=== PATIENT | female | born 1960 | race Caucasian/White ===

== ENCOUNTER 2016-10-25 17:12 | Emergency (ER) | payer OTHER ==
[2016-10-25] MEDS ORDERED: Aspirin 81 MG Tab.Chew PO ONE (17:27)
[2016-10-25] MEDS ORDERED: Ondansetron 4 MG/2 ML SDV IV ONE (17:28)
[2016-10-25] MEDS ORDERED: Morphine 2 MG/ML Syringe IVPUSH ONE ×3 (17:42→19:45)
--- NOTE | 2016-10-25 17:43 | EDM.PDOC ---
<Henry Cisneros - Last Filed: 10/25/16 18:45> ED HPI GENERAL MEDICAL PROBLEM - General Stated Complaint: BACK PAIN,CHEST PAIN,THROWING UP Time Seen by Provider: 10/25/16 17:34 Source of Information: Reports: Patient History Limitations: Reports: No Limitations - History of Present Illness INITIAL COMMENTS - FREE TEXT/NARRATIVE: This 56 yo female patient reports to the ED with abdominal pain, chest pain and back pain. The patient reports her pain started at about 1500 today and rates her pain at a 10/10. The patient reports she has a history of a gastric bypass and has a pacemaker. The patient has been nauseated since the onset of her symptoms with some bile vomitus. The patient reports she has had intermittent similar symptoms in the past, but they usually do not last this long. Onset: Today Onset Date: 10/25/16 Onset Time: 15:00 Duration: Constant, Getting Worse Location: Reports: Chest, Abdomen, Back Quality: Reports: Ache, Sharp Severity: Severe Improves with: Reports: None Worsens with: Reports: None Associated Symptoms: Reports: Nausea/Vomiting Treatments [employer]ESSION[employer]: Reports: NSAIDS Epigastric Pain Score (Numeric/FACES): 10 - Related Data Allergies Allergy/AdvReac Type Severity Reaction Status Date / Time No Known Allergies Allergy Verified 10/25/16 17:39 Home Meds: Home Meds FLUoxetine HCl [Fluoxetine] 20 mg PO DAILY 10/25/16 [History] Ibuprofen 10/25/16 [History] Lisinopril [Prinivil] 10 mg PO DAILY 10/25/16 [History] Meclizine [Antivert] 25 mg PO DAILY 10/25/16 [History] Multivitamin [Daily Florin] 1 each PO DAILY 10/25/16 [History] Omeprazole Magnesium [Prilosec Otc] 20 mg PO DAILY 10/25/16 [History] ED ROS GENERAL - Review of Systems Review Of Systems: ROS reveals no pertinent complaints other than HPI. ED EXAM, GENERAL - Physical Exam Exam: See Below Exam Limited By: No Limitations General Appearance: Alert, WD/WN, Severe Distress Eye Exam: Bilateral Eye: EOMI, Normal Inspection, PERRL Ears: Normal External Exam, Normal Canal, Hearing Grossly Normal, Normal TMs Nose: Normal Inspection, Normal Mucosa, No Blood Throat/Mouth: Normal Inspection, Normal Lips, Normal Teeth, Normal Gums, Normal Oropharynx, Normal Voice, No Airway Compromise Head: Atraumatic, Normocephalic Neck: Normal Inspection, Supple, Non-Tender, Full Range of Motion Respiratory/Chest: No Respiratory Distress, Lungs Clear, Normal Breath Sounds, No Accessory Muscle Use, Chest Non-Tender Cardiovascular: Normal Peripheral Pulses, Regular Rate, Rhythm, No Edema, No Gallop, No JVD, No Murmur, No Rub GI/Abdominal: Normal Bowel Sounds, Guarding, Tender (diffuse) (Female) Exam: Deferred Rectal (Female) Exam: Deferred Extremities: Normal Inspection, Normal Range of Motion, Non-Tender, Normal Capillary Refill, No Pedal Edema Neurological: Alert, Oriented, CN II-XII Intact, Normal Cognition Psychiatric: Anxious, Tearful Skin Exam: Warm, Intact, Normal Color, No Rash, Diaphoretic Lymphatic: No Adenopathy Course - Vital Signs Last Recorded V/S: Last Vital Signs Temp 95.4 F 10/25/16 17:39 Pulse 77 10/25/16 18:30 Resp 18 10/25/16 18:30 BP 153/75 H 10/25/16 18:30 Pulse Ox 100 10/25/16 17:39 - Orders/Labs/Meds Orders: Active Orders 24 hr Category Date Time Status EKG Documentation Completion [RC] URGENT Care 10/25/16 17:27 Active Glucose [Blood Glucose Check, Bedside] [RC] ONETIME Care 10/25/16 17:35 Active Labs: Laboratory Tests 10/25/16 10/25/16 10/25/16 Range/Units 17:37 17:50 17:50 WBC 8.5 (5.0-10.0) 10^3/uL RBC 4.50 (4.2-5.4) 10^6/uL Hgb 14.1 (12.0-16.0) g/dL Hct 40.9 (37.0-47.0) % MCV 90.9 (80-100) fL MCH 31.3 (27.0-34.0) pg MCHC 34.5 (33.0-35.0) g/dL Plt Count 172 (150-450) 10^3/uL Neut % (Auto) 70.8 (42.2-75.2) % Lymph % (Auto) 20.2 L (20.5-50.1) % Mchenry % (Auto) 7.2 (2-8) % Eos % (Auto) 1.2 (1.0-3.0) % Baso % (Auto) 0.6 (0.0-1.0) % Sodium 139 (135-145) mmol/L Potassium 3.2 L (3.6-5.0) mmol/L Chloride 111 (101-111) mmol/L Carbon Dioxide 15.0 L (21.0-31.0) mmol/L Anion Gap 16.2 BUN 26 H (7-18) mg/dL Creatinine 0.9 (0.6-1.3) mg/dL Est Cr Clr Drug Dosing 66.90 mL/min Estimated GFR (MDRD) > 60 BUN/Creatinine Ratio 28.88 Glucose 160 H (74-105) mg/dL POC Glucose 152 H (70-105) mg/dl Calcium 9.1 (8.4-10.2) mg/dl Total Bilirubin 0.4 (0.2-1.0) mg/dL AST 26 (10-42) IU/L ALT 19 (10-60) IU/L Alkaline Phosphatase 62 (42-121) IU/L Troponin I < 0.02 (0.00-0.02) ng/ml Total Protein 6.9 (6.7-8.2) g/dl Albumin 4.1 (3.2-5.5) g/dl Globulin 2.8 Albumin/Globulin Ratio 1.46 Amylase (28-100) U/L Lipase (22-51) U/L Ethyl Alcohol mg/dL 05/16/17 Range/Units 17:50 WBC (5.0-10.0) 10^3/uL RBC (4.2-5.4) 10^6/uL Hgb (12.0-16.0) g/dL Hct (37.0-47.0) % MCV (80-100) fL MCH (27.0-34.0) pg MCHC (33.0-35.0) g/dL Plt Count (150-450) 10^3/uL Neut % (Auto) (42.2-75.2) % Lymph % (Auto) (20.5-50.1) % Mchenry % (Auto) (2-8) % Eos % (Auto) (1.0-3.0) % Baso % (Auto) (0.0-1.0) % Sodium (135-145) mmol/L Potassium (3.6-5.0) mmol/L Chloride (101-111) mmol/L Carbon Dioxide (21.0-31.0) mmol/L Anion Gap BUN (7-18) mg/dL Creatinine (0.6-1.3) mg/dL Est Cr Clr Drug Dosing mL/min Estimated GFR (MDRD) BUN/Creatinine Ratio Glucose (74-105) mg/dL POC Glucose (70-105) mg/dl Calcium (8.4-10.2) mg/dl Total Bilirubin (0.2-1.0) mg/dL AST (10-42) IU/L ALT (10-60) IU/L Alkaline Phosphatase (42-121) IU/L Troponin I (0.00-0.02) ng/ml Total Protein (6.7-8.2) g/dl Albumin (3.2-5.5) g/dl Globulin Albumin/Globulin Ratio Amylase 31 (28-100) U/L Lipase 25 (22-51) U/L Ethyl Alcohol < 5 mg/dL Meds: Medications Discontinued Medications Generic Name Dose Route Start Last Admin Trade Name Freq PRN Reason Stop Dose Admin Aspirin 324 mg 10/25/16 17:27 10/25/16 17:42 Aspirin PO 10/25/16 17:28 324 mg ONETIME ONE Administration Fentanyl 25 mcg 10/25/16 21:26 10/25/16 21:31 Sublimaze IVPUSH 10/25/16 21:27 25 mcg ONETIME ONE Administration Iopamidol 75 ml 10/25/16 18:35 10/25/16 18:41 Isovue-300 (61%) IVPUSH 10/25/16 18:36 75 ml ONETIME ONE Administration Metoclopramide HCl 10 mg 10/25/16 18:15 10/25/16 18:17 Reglan IVPUSH 10/25/16 18:16 10 mg ONETIME ONE Administration Morphine Sulfate 2 mg 10/25/16 17:42 10/25/16 17:46 Morphine IVPUSH 10/25/16 17:43 2 mg ONETIME ONE Administration Morphine Sulfate 2 mg 10/25/16 18:21 10/25/16 18:23 Morphine IVPUSH 10/25/16 18:22 2 mg ONETIME ONE Administration Morphine Sulfate 2 mg 10/25/16 19:45 10/25/16 20:36 Morphine IVPUSH 10/25/16 19:46 2 mg ONETIME ONE Administration Ondansetron HCl 4 mg 10/25/16 17:28 10/25/16 17:31 Zofran IV 10/25/16 17:29 4 mg ONETIME ONE Administration Promethazine HCl 25 mg 10/25/16 21:26 10/25/16 21:32 Phenergan IM 10/25/16 21:27 25 mg ONETIME ONE Administration Departure - Departure Disposition: DC/Tfer to Acute Hospital 02 Clinical Impression: Intussusception of intestine, Small bowel obstruction, H/O gastric bypass, H/O : CVA (cerebrovascular accident) Atrial fibrillation Qualifiers: Atrial fibrillation type: chronic Qualified Code(s): I48.2 - Chronic atrial fibrillation Referrals: PCP,Unobtain [Primary Care Provider] - Forms: ED Department Discharge <Deandra Hennessy - Last Filed: 10/26/16 02:56> Course - Radiology Interpretation Free Text/Narrative:: CT intussusception of anastomosis, possible SBO and small splenic infarct. - Re-Assessments/Exams Free Text/Narrative Re-Assessment/Exam: 10/26/16 02:50 Morphine repeated for pain, IM phenergan for nausea, Improved. TC Dr. Nettie Villalta. Deferred patient to [facility] for further eval and management as current problem may considered surgical surgical complication . Not comfortable accepting patient and surgical management. Initial surgery done at [facility] in 2013, Dr. Melchor Mosley accepting of patient. . Tx via [facility] in stable condition. Departure - Departure Time of Disposition: 22:05 Reason for Transfer *Q: Other Condition: fair
[2016-10-25] MEDS ORDERED: Metoclopramide 10 MG/2 ML SDV IVPUSH ONE (18:15)
[2016-10-25 18:16] LABS: CHLORIDE,CL 111 mmol/L (101-111); SODIUM,NA 139 mmol/L (135-145)
[2016-10-25] MEDS ORDERED: Iopamidol 612 MG/ML 75 ML Bottle IVPUSH ONE (18:35)
[2016-10-25 18:42] VITALS: BP 153/75
[2016-10-25] MEDS ORDERED: fentaNYL 100 MCG/2 ML SDV IVPUSH ONE (21:26)
[2016-10-25] MEDS ORDERED: Promethazine 25 MG/ML SDV IM ONE (21:26)
--- NOTE | 2016-10-26 12:06 | EKG ---
10/25/2016 - TREMAYNE WATSON I reviewed the EKG and agree with the machine's reading. [facility] /[id number]
== END 2016-10-25 21:55 ==
LOC: DL.ED 17:12
DX: K56.60 Unspecified intestinal obstruction (principal); I48.2 Chronic atrial fibrillation; K56.1 Intussusception; Z98.84 Bariatric surgery status; Z86.73 Personal history of transient ischemic attack (TIA), and cerebral infarction without residual deficits; Z79.899 Other long term (current) drug therapy
CPT/HCPCS: 36415; 71010; 74177; 80053; 82150; 82962; 83690; 84484; 85025; 93005; 96372; 96374; 96375; 96376; 99285; A9270; G0480; J2270; J2405; J2550; J2765; J3010; Q9967